=== PATIENT | male | born 1940 | race Caucasian/White ===

== ENCOUNTER 2023-12-30 15:16 | Outpatient (CLI) | payer MEDICARE, SELFPAY | END 2023-12-30 15:17 | disposition home or self-care (01) | PROVIDERS: PCP Physician Assistant Medical; Visit Provider Emergency Medicine | DX: R41.82 Altered mental status, unspecified (principal); M79.605 Pain in left leg; M62.81 Muscle weakness (generalized) | CPT/HCPCS: A0425; A0427 ==